=== PATIENT | male | born 1980 | race Two or more races ===

== ENCOUNTER 2018-07-14 05:41 | Inpatient (IN) | payer OTHER ==
[2018-07-14] VITALS (14 sets, daily range): BP systolic 124–150; BP diastolic 77–94
[~2018-07-14] VITALS: Ht 177.8 cm; Wt 102.1 kg
[~2018-07-14 05:41] MED LIST: CYCLOBENZAPRINE10 MG ORAL; IBUPROFEN600 MG ORAL
[2018-07-14] MEDS ORDERED: Lidocaine 1% MPF 10mg/ml 5ml ONE (06:53)
[2018-07-14] MEDS ORDERED: Midazolam 2mg/2ml Inj ONE (06:53)
[2018-07-14] MEDS ORDERED: fentaNYL 100 mcg/2 mL IV ONE (06:53)
[2018-07-14] MEDS ORDERED: Sodium Chloride 10ml vial INJ ONE ×2 (06:59→08:48)
[2018-07-14] MEDS ORDERED: ceFAZolin sod 2 GM in D5W 110 ML IVPB ONE (07:00)
[2018-07-14] MEDS ORDERED: Zemuron 50mg/5ml Inj IV ONE (07:11)
[2018-07-14] MEDS ORDERED: Succinylcholine 20mg/ml 10ml vial ONE (07:12)
[2018-07-14] MEDS ORDERED: Thrombin 5000 units TOPIC ONE (07:14)
[2018-07-14] MEDS ORDERED: Gelfoam Size TOPIC ONE (07:14)
[2018-07-14] MEDS ORDERED: Bupivacaine w/Epi 0.5% 30ml Vial INJ ONE (07:15)
[2018-07-14] MEDS ORDERED: Bacitracin 50000 Units Vial ONE (07:15)
[2018-07-14] MEDS ORDERED: Heparin 1000 units/ml 1ml Vial ONE (07:28)
--- NOTE | 2018-07-14 07:29 | Pre-Procedure Note/Attestation ---
Pre-Procedure Note/Attestation Complete Prior to Procedure Procedure Narrative: acdf C5-6 with ic bone marrow aspiration Attestation I attest that I discussed the nature of the procedure; its benefits; risks and complications; and alternatives (and the risks and benefits of such alternatives ), prior to the procedure, with the patient (or the patient's legal technical support representative). I attest that, if there was a reasonable possibility of needing a blood transfusion, the patient (or the patient's legal technical support representative) was given the [facility] standardized written summary, pursuant to the Vamsi Comobabi Blood Safety Act ([place] Health and Safety Code # 1645, as amended). I attest that I re-evaluated the patient just prior to the surgery and that there has been no change in the patient's H&P, except as documented below: Diaz Clemons MD Jul 14, 2018 07:29
[2018-07-14] MEDS ORDERED: Propofol 1,000mg/ 100ml btl IV ONE (07:30)
[2018-07-14] MEDS ORDERED: LR 1000ml ONE (07:30)
[2018-07-14] MEDS ORDERED: NS Irrig 1000ml ONE (07:30)
[2018-07-14] MEDS ORDERED: Sterile Water Irrig 1000ml IRRIG ONE (07:30)
[2018-07-14] MEDS ORDERED: Metoprolol 5mg/5ml Inj ONE (08:35)
--- NOTE | 2018-07-14 08:40 | Anethesia Preoperative Eval ---
Anesthesia Pre-op PMH/ROS General Date of Evaluation: Jul 14, 2018 Time of Evaluation: 07:18 Anesthesiologist: Orquidea ASA Score: ASA 2 Mallampati Score Class I : Soft palate, uvula, fauces, pillars visible Class II: Soft palate, uvula, fauces visible Class III: Soft palate, base of uvula visible Class IV: Only hard plate visible Mallampati Classification: Class II Surgeon: Kaci Diagnosis: Cervical radiculopathy Surgical Procedure: ACDF C5-C6 Anesthesia History: none Social History: smoking - h/o Family History: no anesthesia problems Allergies: Coded Allergies: No Known Allergies (Unverified , 07/14/18) Medications: see eMAR Patient NPO?: Yes NPO Date: Jul 13, 2018 NPO Time: 2199 Past Medical History Cardiovascular: Denies: HTN, CAD, NE, valve dz, arrhythmia, other Pulmonary: Denies: asthma, COPD, KASEY, other Gastrointestinal/Genitourinary: Reports: GERD - mild; Denies: CRI, ESRD, other Neurologic/Psychiatric: Denies: dementia, CVA, depression/anxiety, TIA, other Endocrine: Denies: DM, hypothyroidism, steroids, other HEENT: Denies: cataract (L), cataract (R), glaucoma, [place] (L), [place] (R), other Hematology/Immune: Denies: anemia, DVT, bleeding disorder, other Musculoskeletal/Integumentary: Denies: OA, RA, DJD, DDD, edema, other Other: obesity PMH Narrative: as above PSxH Narrative: dental Sx Anesthesia Pre-op Phys. Exam Physician Exam Last Vital Signs Date Time Temp Pulse Resp B/P (MAP) Pulse Ox O2 Delivery O2 Flow Rate FiO2 07/14/18 06:05 Room Air 07/14/18 06:03 97.5 66 18 132/89 (103) 99 97.5 Constitutional: NAD Neurologic: CN 2-12 intact Cardiovascular: RRR, no M/R/G Respiratory: CTA Gastrointestinal: S/NT/ND Airway Exam Mallampati Score: Class II MO: full Neck: stiff ROM: limited Teeth: intact Dentures: no upper, no lower Anesthesia Pre-op A/P Labs see chart Studies Pre-op Studies: EKG - NSR Risk Assessment & Plan Assessment: ASA 2 Plan: GA with ETT PONV Prevention neuromonitoring Status Change Before Surgery: No Pre-Antibiotics Drug: Ancef 2gr. Given Within 1 Hr of Incision: Yes Time Given: 08:02 Yayo Heard MD Jul 14, 2018 08:40
[2018-07-14] MEDS ORDERED: LR 1000ml 1,000 ML IVLG SCH (08:43)
[2018-07-14] MEDS ORDERED: Metoclopramide 10mg/2ml Inj IVP PRN (08:45)
[2018-07-14] MEDS ORDERED: fentaNYL 100 mcg/2 mL IV PRN (08:45)
[2018-07-14] MEDS ORDERED: Midazolam 2mg/2ml Inj IVP PRN (08:45)
[2018-07-14] MEDS ORDERED: Meperidine 50mg/ml Inj(FOR RIGORS ONLY) IV PRN (08:45)
[2018-07-14] MEDS ORDERED: Acetaminophen (Non formulary) 100 ML IV ONE (08:45)
[2018-07-14] MEDS ORDERED: DiphenhydrAMINE 50mg/ml Inj IVP PRN (08:45)
[2018-07-14] MEDS ORDERED: Ketorolac 30mg Inj IV PRN (08:45)
[2018-07-14] MEDS ORDERED: Morphine Sulfate 10mg/ml Inj ONE (08:47)
[2018-07-14] MEDS ORDERED: NS Irrig 1000ml IRRIG ONE (08:50)
[2018-07-14] MEDS ORDERED: Neostigmine 1mg/ml 10ml Inj ONE (08:50)
[2018-07-14] MEDS ORDERED: Glycopyrrolate 0.2mg/ml 1ml Vial ONE (08:50)
[2018-07-14] MEDS ORDERED: Ketorolac 30mg Inj ONE (08:51)
[2018-07-14] MEDS ORDERED: Propofol 200mg/20ml IV ONE (09:34)
--- NOTE | 2018-07-14 10:08 | Brief Operative Note ---
Immediate Post Operative Note Operative Note Pre-op Diagnosis: cervical radiculopathy Procedure: acdf C56 with right ic bmac Post-op Diagnosis: same as pre-op Findings: consistent w/pre-op dx studies Surgeon: Kaci [employer] Director: Vicki Anesthesiologist: Orquidea Anesthesia: general Specimen: yes Complications: none Condition: stable Fluids: 1 liter Estimated Blood Loss: minimal - 50cc Drains: none Implant(s) used?: Yes Diaz Clemons MD Jul 14, 2018 10:08
[2018-07-14] MEDS ORDERED: HYDROmorphone 1mg/ml Carpuject SUBQ PRN (10:15)
[2018-07-14] MEDS ORDERED: Norco 5mg/325mg tab ORAL PRN (10:15)
[2018-07-14] MEDS ORDERED: HYDROmorphone 1mg/ml Carpuject IVP PRN (10:15)
[2018-07-14] MEDS ORDERED: HYDROcodone/Acetamin 7.5/325 tab ORAL PRN ×2 (10:15)
--- NOTE | 2018-07-14 10:31 | Immediate Post-Op Evaluation ---
Immediate Post-Op Evalulation Immediate Post-Op Evalulation Procedure: ACDF C5-6 Date of Evaluation: Jul 14, 2018 Time of Evaluation: 10:30 IV Fluids: 1000 Blood Products: none Estimated Blood Loss: 50 Urinary Output: none Blood Pressure Systolic: 133 Blood Pressure Diastolic: 86 Pulse Rate: 76 Respiratory Rate: 22 O2 Sat by Pulse Oximetry: 99 Temperature (Fahrenheit): 98.1 Pain Score (1-10): 1 Nausea: No Vomiting: No Complications none Patient Status: reacts, patent, extubated, none Hydration Status: adequate Yayo Heard MD Jul 14, 2018 10:30
[2018-07-14] MEDS: D5 1/2NS 1,000 ML IV SCH ×2 (12:38→21:29)
--- NOTE | 2018-07-14 13:49 | Diagnostic Imaging Report ---
Indication: Neck Pain Findings: 3 fluoroscopic views of the cervical spine were obtained. Intraoperative imaging showing anterior fusion, corpectomy, discectomy at C5-6. IMPRESSION: Intraoperative imaging
[2018-07-14] MEDS ORDERED: ceFAZolin sod 1 GM in D5W 55 ML IV SCH (14:00)
[2018-07-14] MEDS: ceFAZolin sod 1 GM in D5W 55 ML IV SCH ×2 (15:07→21:29)
[2018-07-14] MEDS: Docusate 100mg cap ORAL SCH (18:13)
[2018-07-15] VITALS: BP 134/87
[2018-07-15 04:00] VITALS: BP 133/91
[2018-07-15] MEDS: ceFAZolin sod 1 GM in D5W 55 ML IV SCH (06:01)
--- NOTE | 2018-07-15 07:38 | Cardiology Progress Note ---
Assessment/Plan Assessment/Plan seeen at request of dr ortega and sonam seem to be doign well bp is on the higher side need fu in futuer to assure adequate control presently may be related to na loading with ivf avoid flu vaccine post op as may cause fever and body aches [id number] Objective Last 24 Hour Vital Signs Date Time Temp Pulse Resp B/P (MAP) Pulse Ox O2 Delivery O2 Flow Rate FiO2 07/15/18 04:00 98.4 71 18 133/91 (105) 97 98.4 07/15/18 00:00 97.6 80 18 134/87 (103) 98 97.6 07/14/18 22:00 97.5 07/14/18 21:00 Room Air 07/14/18 20:00 97.5 77 18 150/94 (112) 98 97.5 07/14/18 16:00 97.5 70 19 133/87 (102) 95 97.5 07/14/18 12:00 97.7 78 19 127/83 (98) 95 97.7 07/14/18 12:00 Nasal Cannula 2.0 07/14/18 11:45 98.1 79 18 124/77 (93) 95 98.1 07/14/18 11:30 98.4 69 18 125/80 (95) 98 98.4 07/14/18 11:10 97.8 63 16 129/85 100 Nasal Cannula 3 97.8 07/14/18 11:00 68 15 131/84 100 Nasal Cannula 3 07/14/18 10:55 76 13 129/85 100 Nasal Cannula 3 07/14/18 10:52 98.0 07/14/18 10:45 71 14 140/86 100 Simple Mask 6 07/14/18 10:35 74 17 130/87 100 Simple Mask 6 07/14/18 10:30 208.6 76 22 99 07/14/18 10:25 79 15 131/82 100 Simple Mask 6 07/14/18 10:20 88 16 133/86 100 Simple Mask 6 07/14/18 10:15 98 87 20 124/87 100 Simple Mask 6 98.0 Intake and Output 07/14/18 07/15/18 19:00 07:00 Intake Total 1500 ml 915 ml Output Total 50 ml 1650 ml Balance 1450 ml -735 ml Intake Oral 360 ml IV Total 1500 ml 555 ml Output Urine Total 1650 ml Estimated Blood Loss 50 ml # Voids 2 Dave Haro MD Jul 15, 2018 07:38
[2018-07-15 08:00] VITALS: BP 145/87
[2018-07-15] MEDS: Docusate 100mg cap ORAL SCH (09:32)
[2018-07-15] MEDS ORDERED: NORCO 10-325 T1 EACH ORAL (11:27)
[2018-07-15] MEDS ORDERED: SOMA350 MG PO (11:28)
[2018-07-15 11:38] VITALS: BP 133/91
--- NOTE | 2018-07-15 11:38 | 48 Hour Post Anesthesia Eval ---
Post Anesthesia Evaluation Procedure: ACDF C5-6 Date of Evaluation: Jul 15, 2018 Time of Evaluation: 06:00 Blood Pressure Systolic: 133 0: 91 Pulse Rate: 71 Respiratory Rate: 18 Temperature (Fahrenheit): 98.4 O2 Sat by Pulse Oximetry: 97 Airway: patent Nausea: No Vomiting: No Pain Intensity: 2 Hydration Status: adequate Cardiopulmonary Status: at baseline Mental Status/LOC: patient returned to baseline Post-Anesthesia Complications: 0 Follow-up care needed: N/A - further care as per primary team Sana Guevara MD Jul 15, 2018 11:38
[2018-07-15] MEDS ORDERED: D5 1/2NS 1000ml IV ONE (11:49)
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
--- NOTE | 2018-07-15 23:45 | Operative Note - Dictated ---
DATE OF OPERATION: 07/14/2018 PREOPERATIVE DIAGNOSES: A C5-C6 disk protrusion with annular tear, stenosis, and right upper extremity radiculopathy. POSTOPERATIVE DIAGNOSES: A C5-C6 disk protrusion with annular tear, stenosis, and right upper extremity radiculopathy. PROCEDURE PERFORMED: 1. Anterior cervical diskectomy and fusion at C5-C6. 2. Anterior instrumentation, C5-C6. 3. Implantation of biomechanical device at C5-C6 with autograft, allograft, and bone marrow aspirate concentrate. 4. Acquisition of local autograft at C5-C6 and then acquisition of bone marrow aspirate from the right iliac crest. SURGEON: Diaz Clemons M.D. PLANTING MATERIAL CARRIER SURGEON: Aki Cohen M.D. ANESTHESIA: General endotracheal anesthesia. ANESTHESIOLOGIST: Yayo Heard M.D. SPECIMEN: Disk, C5-C6. ESTIMATED BLOOD LOSS: 50 mL. FLUIDS: 1 L crystalloid. IV ANTIBIOTICS: 2 g of Ancef. COMPLICATIONS: None. BACKGROUND AND INDICATIONS: The patient is a pleasant gentleman who failed nonoperative treatment and had neck pain with right upper extremity radiculopathy with failed nonoperative treatment. He had weakness in his right wrist extensors 4/5 and option for above treatment was given. Risks, alternatives, and benefits were discussed with the patient at length. The risks include, but are not limited to anesthesia complications including , medical complications including liver, kidney, and cardiopulmonary deficits, bleeding, infection, dysphonia, dysphagia, hematoma of the neck, nerve root injury, paralysis, spinal cord injury, CSF leak, dural tear, fracture of the hardware, loosening of the hardware, pseudarthrosis, need for revision, decompression and fusion, swallowing difficulties, esophageal injury, tracheal injury, and recurrent laryngeal nerve injury as well as other complications including compartment syndrome. The patient understood and wished to proceed. Written and verbal consent was given. All the patient's questions were answered. No guarantees were given. OPERATIVE FINDINGS: Disk herniation at C5-C6 with neural foraminal stenosis, impingement of the right C6 nerve root with right paracentral disk herniation. DESCRIPTION OF OPERATION: The patient was brought into the operating room supine on a stretcher. Appropriate IV lines were placed by the anesthesiologist. A 2 g of Ancef was administered. A surgical time-out was called. The patient was induced and intubated without complication. The patient was positioned onto the operating room table. The neck was placed into a neutral alignment. The arms were tucked by the side. All bony prominences were well padded as well as the four extremities. SSEP and EMG monitoring was done throughout the case and remained stable throughout the case. Preoperative fluoroscopy revealed the planned incision to be over the right side of the neck overlying the C5-C6 interspace. Fluoroscopy revealed the neck to be in adequate alignment. The neck was prepped and draped in the usual sterile fashion with alcohol, chlorhexidine scrub, and ChloraPrep. Myself and my therapy administrative assistant were prepped and gowned appropriately. At this point, the intraoperatively sterilely draped microscope was brought into the field and was used from some skin incision through skin closure. An incision was carried out with a scalpel on the anterior right side of the neck in the crease of the neck. Hemostasis was achieved with bipolar cautery. The platysma was incised in line with the skin incision. The blunt dissection was carried out in the interval between the strap muscles and the sternocleidomastoid. Superficial cervical fascia was dissected caudally as well as cephalad. Carotid pulse was palpated and was found to be well lateral to the field of dissection. Deep cervical fascia was encountered. Once deep cervical fascia was found, blunt dissection was carried out with Kittners as well as finger dissection to find the prevertebral space. The longus colli was found on both sides of the spine and was subperiosteally dissected. At this point, the Physical Instructor retractors were set to place. A spinal needle was placed in the C5-C6, interspace was identified. At this point, attention was diverted to the diskectomy. A scalpel was used to make a box incision into the anterior annulus and with straight and curved curettes, #1,#2, #3, Kerrison punches, and radical diskectomy was done and endplate cartilage was removed and the endplate cartilage was well preserved. A high-speed drill was used to drill to the posterior aspect of the C5 and C6 vertebral bodies. Local autograft was preserved from shavings of the C6 and C5 vertebral body. Drilling was done to the level of the posterior longitudinal ligament. At this point, with #1 and #2 Microsect curette, the posterior longitudinal ligament was removed. The disk herniation was found, causing stenosis and effacement of the thecal sac, abutment of the spinal cord, and impingement of the traversing C6 nerve roots bilaterally, worse on the right side. All disk material was removed and anterior foraminotomy was accomplished for complete decompression of the spinal canal, the lateral recess and the foramina was complete, and decompression of the exiting C6 nerve roots bilaterally. Valsalva 40 mmHg was done. There was no CSF leak and at this point, attention was used to placement of trials from the spinal element system and an 8 mm in height trial was found to oppose the endplates appropriately and recreate disk height and lordosis at C5-C6. Previously before the skin incision in the neck, the right iliac crest was prepped and draped in the usual sterile fashion and a Cycle Moneyshidi needle was used to aspirate 30 mL of bone marrow from the right iliac crest at three different locations and three 10 mL syringes were filled with bone marrow to be concentrated for stem cells. The stem cell concentrate was preserved and later implanted into the biomechanical device, which was implanted into the C5-C6 interbody space. At this point, a PEEK interbody device from the spinal element system, measuring 8 mm in height x 13 mm x 6 mm was chosen, was packed with local autograft with Zeigler allograft and bone marrow aspirate concentrate, and was implanted into the C5-C6 interbody space with excellent apposition against the endplates and good recreation of disk height and good lordosis. This was confirmed via biplanar fluoroscopy. Once this was completed, a 14 mm Cisco plate was chosen, was bent into a lordotic fashion, and would stick onto the anterior surface of the C5 and C6 vertebral bodies with 16 mm self-drilling screws for the C5 vertebral body and 14 mm self-drilling screws for the C6 vertebral body. Each screw had excellent purchase and sat below the locking mechanism of the Cisco plate appropriately. AP and lateral fluoroscopy revealed all instrumentation including the anterior plate as well as the PEEK interbody device to be in excellent position. Hemostasis was achieved with bipolar cautery, FloSeal, Gelfoam, and thrombin and therefore, a drain was deemed not to be necessary for this case. Attention was now diverted to closure. The platysma was closed with 3-0 Vicryl sutures in a watertight interrupted fashion. The subcuticular layer was closed with 4-0 Monocryl suture with interrupted sutures. The skin was closed with Dermabond. All sponge, needle, and instrument counts were correct. There were no complications during the case. EBL was 50 mL. A C-collar, sterile dressing, and tape was placed. Then, a C-collar was placed. The patient was extubated, was taken to the recovery room in stable condition. SSEP and EMG remained stable throughout the case. The patient was admitted to the hospital for monitoring and postoperative instructions were given. Diaz Clemons M.D. DR: TRINI JOB#: [id number] CC:
--- NOTE | 2018-07-17 12:54 | Discharge Summary ---
Discharge Summary Hospital Course Date of Admission Jul 14, 2018 at 05:41 Date of Discharge Jul 15, 2018 at 11:50 Admitting Diagnosis cervical radiculopathy Reason for Hospitalization: elective surgery HPI Jorge Luis Gurrola Jr is a 37 year old male who was admitted on Jul 14, 2018 at 05:41 for C5-6 disc protrusion, with right upper extremity radiculopathy. Patient was admitted for elective surgery. Consultations dr Haro - IM/cardio Procedures s/p 07/14/[address] Clemons 1. Anterior cervical diskectomy and fusion at C5-C6. 2. Anterior instrumentation, C5-C6. 3. Implantation of biomechanical device at C5-C6 with autograft, allograft, and bone marrow aspirate concentrate. 4. Acquisition of local autograft at C5-C6 and then acquisition of bone marrow aspirate from the right iliac crest. Hospital Course status post surgery course of recovery uneventful initially IV fluids s/p perioperative antibiotics neurovascular status closely monitored, stable incision clean, dry and intact pain management addressed ; pain controlled hemodynamically stable ambulated with PT /OT fall precautions maintained; safe for ambulation slowly started on diet as tolerated Cepacol lozenges prn fro comfort provided tolerated soft diet , IV fluids discontinued antiemetics were on board as needed voided freely bowel regimen instituted patient was stable for discharge discharge instructions provided follow up with surgeon as outpatient as advised FINAL DIAGNOSES C5-C6 disk protrusion with annular tear, cervical stenosis with right upper extremity radiculopathy s/p ACDF C5- 6 with right iliac crest bone marrow aspirate Discharge Medications Changed Medications: Carisoprodol* (Soma*) 350 Mg Tablet 350 MG PO TID PRN for muscle spasm, #30 TAB (Medication details modified) Continued Medications: Hydrocodone Bit/Acetaminophen 10-325* ([place] 10-325*) 1 Each Tablet 1 TAB ORAL Q6H PRN for For Pain, #30 TAB 0 Refills (This prescription has been renewed) PRN PAIN Discharge Condition Upon Discharge: stable Discharge Disposition Patient was discharged to Home () Discharge Instructions Discharge Instructions Special Instructions I have been assigned to complete a D/C Summary on this account. I was not involved in the patient management Carmina Crooks NP Jul 17, 2018 12:54
== END 2018-07-15 11:50 | disposition home or self-care (01) | DRG 473 ==
LOC: SDSOVERFLO 05:41 → 3E 11:30
PROC: 0RG10A0 Fusion of Cervical Vertebral Joint with Interbody Fusion Device, Anterior Approach, Anterior Column, Open Approach (ICD-10-PCS; principal; 2018-07-14 07:30)
PROC: 0RT30ZZ Resection of Cervical Vertebral Disc, Open Approach (ICD-10-PCS; principal; 2018-07-14 07:30)
PROC: 07DR3ZZ Extraction of Iliac Bone Marrow, Percutaneous Approach (ICD-10-PCS; principal; 2018-07-14 07:30)
DX: M50.122 Cervical disc disorder at C5-C6 level with radiculopathy (principal); V89.2XXS Person injured in unspecified motor-vehicle accident, traffic, sequela; M48.02 Spinal stenosis, cervical region
CPT/HCPCS: 36415; 72040; 76001; 86850; 86900; 86901; 87081; J2250; J2405; J2710